=== PATIENT | female | born 1995 | race African-American/Black ===

== ENCOUNTER 2017-05-08 12:55 | Emergency (ER) | payer SELFPAY ==
[2017-05-08 13:20] LABS: URINE HCG POC HCG NEGATIVE (Negative)
[2017-05-08 13:31] LABS: BILIRUBIN,URINE NEGATIVE (NEG); CLARITY,URINE CLEAR; COLOR,URINE YELLOW; GLUCOSE,URINE NEGATIVE (NEG); NITRITE,URINE NEGATIVE (NEG); PROTEIN,URINE NEGATIVE (NEG-TRACE)
[2017-05-08 13:32] LABS: BACTERIA,URINE MOD /HPF (0-FEW); SQUAMOUS EPITHELIAL CELL,UR MANY /LPF; WBC,URINE OCC /HPF (0-4)
[2017-05-08 13:33] LABS: RBC,URINE 0 /HPF (0-2)
[2017-05-08] MEDS: KETOROLAC 60 MG/2 ML INJ. IM (14:00)
== END 2017-05-08 14:20 | disposition home or self-care (01) ==
LOC: ER 14:20
DX: R07.89 Other chest pain (principal)
CPT/HCPCS: 71046; 81001; 81025; 93005; 96372; 99285-25; J1885

== ENCOUNTER 2017-07-04 15:56 | Emergency (ER) | payer SELFPAY ==
[2017-07-04 16:22] LABS: URINE HCG POC HCG NEGATIVE (Negative)
[2017-07-04 16:22] LABS: BILIRUBIN,URINE NEGATIVE (NEG); CLARITY,URINE CLOUDY; COLOR,URINE YELLOW; GLUCOSE,URINE NEGATIVE (NEG); NITRITE,URINE NEGATIVE (NEG); PROTEIN,URINE NEGATIVE (NEG-TRACE)
[2017-07-04 16:29] LABS: BACTERIA,URINE MANY /HPF (0-FEW); RBC,URINE OCC /HPF (0-2); SQUAMOUS EPITHELIAL CELL,UR MANY /LPF; WBC,URINE RARE /HPF (0-4)
[2017-07-04] MEDS: AZITHROMYCIN 250 MG TABLET. PO (17:37)
[2017-07-04] MEDS: ONDANSETRON PF 4 MG/2 ML VIAL. IV (17:38)
[2017-07-07 14:30] LABS: CHLAMYDIA PROBE Positive (Negative); GC PROBE Negative (Negative)
== END 2017-07-04 17:50 | disposition home or self-care (01) ==
LOC: ER 15:56
DX: N93.9 Abnormal uterine and vaginal bleeding, unspecified (principal)
CPT/HCPCS: 81001; 81025; 87491; 87591; 96374; 96375; 99284-25; J0690; J2405; Q0111; Q0144